=== PATIENT | female | born 1965 | race Caucasian/White ===

== ENCOUNTER 2022-03-31 20:54 | Emergency (ER) | payer BC ==
[2022-03-31 22:23] LABS: SARS-CoV-2 NAA Rapid Test Not Detected (NotDetected)
[2022-03-31] MEDS ORDERED: Fentanyl 100 MCG/2 ML VIAL ONE (22:24)
[2022-03-31] MEDS ORDERED: PROPOFOL 20 ML ONE (22:24)
[2022-03-31] MEDS ORDERED: Lidocaine 2% MPF 10 ML AMP (For Epidural Use) ONE (22:24)
[2022-03-31] MEDS ORDERED: Succinylcholine 200 MG/10 ml SYRINGE FS ONE (22:27)
== END 2022-03-31 22:19 | disposition admitted as inpatient to this hospital (09) ==
LOC: CSHERS 20:54
PROC: 0DC18ZZ Extirpation of Matter from Upper Esophagus, Via Natural or Artificial Opening Endoscopic (ICD-10-PCS; principal; 2022-03-31)
DX: T18.128A Food in esophagus causing other injury, initial encounter (principal); Z20.822 Contact with and (suspected) exposure to COVID-19
CPT/HCPCS: 99284; J2704; J3010; U0002